=== PATIENT | female | born 1965 | race Caucasian/White ===

== ENCOUNTER 2024-11-13 01:41 | Inpatient (IN) | payer MEDICAID ==
[2024-11-13] VITALS (14 sets, daily range): BP systolic 112–151; BP diastolic 61–87; PULSE 81–110; RESP 16–30; TEMP 97.5–97.7; O2SAT 90–96
[~2024-11-13] VITALS: Ht 177.8 cm; Wt 92.5 kg
[2024-11-13 02:07] LABS: BASOPHILS % (AUTO) 0.6 % (0-1); EOSINOPHILS # (AUTO) 0.1 X10'3 (0-0.9); EOSINOPHILS % (AUTO) 0.8 % (0-6); HEMATOCRIT 35.4 % (35.0-45.0); HEMOGLOBIN 11.8 g/dl (12.0-16.0); LYMPHOCYTES % (AUTO) 13.9 % (21-51); MEAN CORPUSCULAR HEMOGLOBIN 29.8 PG (27.0-31.0); MEAN CORPUSCULAR HGB CONC 33.4 g/dL (33.0-36.5); MEAN CORPUSCULAR VOLUME 89.4 FL (78-98); MONOCYTES # (AUTO) 0.8 X10'3 (0-0.9); MONOCYTES % (AUTO) 10.5 % (2-12); NEUTROPHILS # (AUTO) 5.6 X10'3 (1.8-7.7); NEUTROPHILS % (AUTO) 74.2 % (42-75); PLATELET COUNT 90 X10'3 (140-440); RED BLOOD COUNT 3.97 X10'6 (4.20-5.60); RED CELL DISTRIBUTION WIDTH 15.5 % (11.5-14.5); WHITE BLOOD COUNT 7.5 X10'3 (4.5-11.0)
[2024-11-13 02:29] LABS: ALBUMIN 2.2 G/DL (3.4-5.0); ANION GAP 1 (8-16); BLOOD UREA NITROGEN 5 MG/DL (7-18); BUN/CREATININE RATIO 9.1 (10.0-20.0); CALCIUM 8.2 MG/DL (8.5-10.1); CHLORIDE 105 MMOL/L (99-107); CREATININE 0.55 MG/DL (0.40-0.90); POTASSIUM 3.6 MMOL/L (3.5-5.1); PRO BRAIN NATRIURETIC PEPTIDE 273 PG/ML (0-125); SODIUM 137 MMOL/L (135-145); eCRCL 122 ML/MIN; eGFR > 90 ML/MIN
[2024-11-13 02:34] LABS: GLUCOSE 190 MG/DL (70-104)
[2024-11-13 02:35] LABS: BILIRUBIN,URINE SMALL (Neg); CLARITY,URINE CLOUDY (Clear); COLOR,URINE YELLOW (Yellow); GLUCOSE, URINE 100 mg/dl (Neg); KETONES,URINE NEGATIVE (Neg); LEUKOCYTE ESTERASE ,URINE LARGE (Neg); NITRITES, URINE NEGATIVE (Neg); OCCULT BLOOD,URINE TRACE-INTACT (Neg); PH,URINE 6.5 (4.8-8.0); PROTEIN,URINE TRACE mg/dl (Neg); UROBILINOGEN,URINE >=8.0 E.U/dL (0.2-1.0)
[2024-11-13 02:39] LABS: UA COLLECTION TYPE CLN CATCH MIDSTREAM
[2024-11-13 02:40] LABS: BACTERIA,URINE 4+ /HPF (Neg); RBC,URINE 0-2 /HPF (0-2); SQUAMOUS EPITHELIAL CELL,UR FEW /LPF (FEW); WBC,URINE 20-30 /HPF (0-4)
[2024-11-13] MEDS ORDERED: iohexol 350MG/ML 100ml bottle IV ONE (04:45)
[2024-11-13] MEDS: furosemide 10 MG/1 ML 10ml inj IV ONE (04:45)
[2024-11-13 04:59] LABS: ALANINE AMINOTRANSFERASE 21 U/L (12-78); ALBUMIN/GLOBULIN RATIO 0.4 (1.1-1.5); ALKALINE PHOSPHATASE 80 IU/L (46-116); ASPARTATE AMINO TRANSFERASE 37 U/L (10-37); BILIRUBIN,DIRECT 1.1 MG/DL (0-0.3); BILIRUBIN,TOTAL 2.1 MG/DL (0.1-1.0); TOTAL PROTEIN 7.7 G/DL (6.4-8.2)
[2024-11-13] MEDS ORDERED: ipratropium/albuterol 3ml nebule NEB PRN (05:35)
[2024-11-13] MEDS ORDERED: mag hydrox/Alum hydrox/simeth 30ml oral suspension PO PRN (05:35)
[2024-11-13] MEDS ORDERED: magnesium sulf-water 2g/50mL 50 ML IV PRN (05:35)
[2024-11-13] MEDS ORDERED: acetaminophen 325mg tablet PO PRN (05:35)
[2024-11-13] MEDS ORDERED: potassium Cl 40MEQ/1/2NS 520ml 520 ML IV PRN (05:35)
[2024-11-13] MEDS ORDERED: HEPARIN DRIP-CARDIAC**PHARMACIST-TO-DOSE IV ONE (05:35)
[2024-11-13] MEDS ORDERED: magnesium sulf-water 4G/100mL 100 ML IV PRN (05:35)
[2024-11-13] MEDS ORDERED: magnesium Cl slow-release 64mg tablet PO PRN (05:35)
[2024-11-13] MEDS ORDERED: potassium Cl 20 mEq SR tablet PO PRN (05:35)
[2024-11-13] MEDS ORDERED: morphine 2 MG/ML inj. syringe IV PRN (05:35)
[2024-11-13] MEDS ORDERED: ondansetron/PF 4mg/2ml inj IV PRN (05:35)
[2024-11-13] MEDS ORDERED: magnesium hydroxide 30ml (MOM) UD suspension PO PRN (05:35)
[2024-11-13] MEDS ORDERED: NO HOME MEDS (06:06)
[2024-11-13] MEDS: aspirin 325mg tablet PO ONE (06:11)
[2024-11-13] MEDS: CefTRIAXone/D5W-Rocephin 1gm 50 ML IV SCH (06:11)
[2024-11-13] MEDS: azithromycin/NS 500mg/250ml 250 ML IV SCH (06:13)
[2024-11-13] MEDS ORDERED: regadenoson 0.4mg/5ml syringe IV PRN (07:15)
[2024-11-13] MEDS ORDERED: nitroGLYCERIN 0.4mg SUBLingual tab SL PRN (07:15)
[2024-11-13] MEDS ORDERED: aminophylline 250mg/10ml inj. IV PRN (07:15)
[2024-11-13] MEDS ORDERED: metoprolol tartrate 1mg/ml inj IV PRN (07:15)
[2024-11-13] MEDS: K and/or MAG REPLACEMENT MC SCH (08:00)
[2024-11-13 08:12] LABS: CHOL/HDL RATIO 3.9 (0.00-4.99); CHOLESTEROL 93 MG/DL (0-200); HDL CHOLESTEROL 24 MG/DL (35-60); LDL CHOLESTEROL 62 MG/DL (50-100); MAGNESIUM 1.5 MG/DL (1.5-2.4); POTASSIUM 3.2 MMOL/L (3.5-5.1); THYROID STIMULATING HORMONE 1.02 ulU/ml (0.34-4.50); TRIGLYCERIDES 59 MG/DL (20-135)
[2024-11-13] MEDS ORDERED: aminophylline 500mg/20ml vial IV PRN (09:40)
[2024-11-13] MEDS: docusate sod 100mg capsule PO SCH (11:51)
[2024-11-13] MEDS: predniSONE 20 mg tablet PO SCH (11:51)
[2024-11-13] MEDS: enoxaparin 100mg/ml syringe SUBCUT SCH (11:51)
[2024-11-13 13:28] LABS: BASOPHILS % (AUTO) 0.3 % (0-1); EOSINOPHILS % (AUTO) 0.7 % (0-6); HEMATOCRIT 34.1 % (35.0-45.0); HEMOGLOBIN 11.6 g/dl (12.0-16.0); LYMPHOCYTES # (AUTO) 0.8 X10'3 (1.1-4.8); LYMPHOCYTES % (AUTO) 14.6 % (21-51); MEAN CORPUSCULAR HEMOGLOBIN 30.3 PG (27.0-31.0); MEAN CORPUSCULAR HGB CONC 33.9 g/dL (33.0-36.5); MEAN CORPUSCULAR VOLUME 89.4 FL (78-98); MEAN PLATELET VOLUME 8.3 FL (7.4-10.4); MONOCYTES # (AUTO) 0.7 X10'3 (0-0.9); MONOCYTES % (AUTO) 12.3 % (2-12); NEUTROPHILS # (AUTO) 4.2 X10'3 (1.8-7.7); NEUTROPHILS % (AUTO) 72.1 % (42-75); PLATELET COUNT 83 X10'3 (140-440); RED BLOOD COUNT 3.81 X10'6 (4.20-5.60); RED CELL DISTRIBUTION WIDTH 15.5 % (11.5-14.5); WHITE BLOOD COUNT 5.8 X10'3 (4.5-11.0)
[2024-11-13 13:32] LABS: ALBUMIN 2.1 G/DL (3.4-5.0); ANION GAP 3 (8-16); BLOOD UREA NITROGEN 5 MG/DL (7-18); BUN/CREATININE RATIO 9.6 (10.0-20.0); CALCIUM 8.5 MG/DL (8.5-10.1); CHLORIDE 104 MMOL/L (99-107); CREATININE 0.52 MG/DL (0.40-0.90); MAGNESIUM 1.6 MG/DL (1.5-2.4); PHOSPHORUS 3.2 MG/DL (2.3-4.5); POTASSIUM 3.3 MMOL/L (3.5-5.1); SODIUM 138 MMOL/L (135-145); TOTAL CARBON DIOXIDE 30.8 MMOL/L (24-32); eCRCL 129 ML/MIN; eGFR > 90 ML/MIN
[2024-11-13 13:33] LABS: GLUCOSE 170 MG/DL (70-104)
[2024-11-13] MEDS: potassium Cl 20 mEq SR tablet PO PRN (13:38)
[2024-11-14] VITALS (14 sets, daily range): BP systolic 98–121; BP diastolic 40–61; PULSE 81–93; RESP 9–21; TEMP 97.3–97.7; O2SAT 91–96
[2024-11-14] MEDS: nicotine 14mg patch - 24hr TD SCH (00:30)
[2024-11-14 07:42] LABS: BASOPHILS % (AUTO) 0.4 % (0-1); EOSINOPHILS % (AUTO) 0.6 % (0-6); HEMATOCRIT 33.7 % (35.0-45.0); HEMOGLOBIN 11.4 g/dl (12.0-16.0); LYMPHOCYTES # (AUTO) 1.1 X10'3 (1.1-4.8); LYMPHOCYTES % (AUTO) 15.5 % (21-51); MEAN CORPUSCULAR HGB CONC 33.9 g/dL (33.0-36.5); MEAN CORPUSCULAR VOLUME 88.6 FL (78-98); MEAN PLATELET VOLUME 8.4 FL (7.4-10.4); MONOCYTES # (AUTO) 0.8 X10'3 (0-0.9); MONOCYTES % (AUTO) 11.2 % (2-12); NEUTROPHILS # (AUTO) 5.2 X10'3 (1.8-7.7); NEUTROPHILS % (AUTO) 72.3 % (42-75); PLATELET COUNT 90 X10'3 (140-440); RED CELL DISTRIBUTION WIDTH 15.4 % (11.5-14.5); WHITE BLOOD COUNT 7.2 X10'3 (4.5-11.0)
[2024-11-14 08:19] LABS: ALANINE AMINOTRANSFERASE 17 U/L (12-78); ALBUMIN 1.9 G/DL (3.4-5.0); ALBUMIN/GLOBULIN RATIO 0.4 (1.1-1.5); ALKALINE PHOSPHATASE 70 IU/L (46-116); ANION GAP 2 (8-16); ASPARTATE AMINO TRANSFERASE 35 U/L (10-37); BILIRUBIN,TOTAL 1.5 MG/DL (0.1-1.0); BLOOD UREA NITROGEN 13 MG/DL (7-18); CALCIUM 8.8 MG/DL (8.5-10.1); CHLORIDE 104 MMOL/L (99-107); CREATININE 0.59 MG/DL (0.40-0.90); MAGNESIUM 1.8 MG/DL (1.5-2.4); POTASSIUM 3.8 MMOL/L (3.5-5.1); SODIUM 137 MMOL/L (135-145); TOTAL CARBON DIOXIDE 30.8 MMOL/L (24-32); TOTAL PROTEIN 7.2 G/DL (6.4-8.2); eCRCL 114 ML/MIN; eGFR > 90 ML/MIN
[2024-11-14 08:21] LABS: GLUCOSE 169 MG/DL (70-104)
[2024-11-14] MEDS: ipratropium/albuterol 3ml nebule NEB SCH (10:10)
[2024-11-14 10:53] LABS: URINE AMPHETAMINE SCREEN POSITIVE (Neg); URINE BARBITUATE SCREEN NEGATIVE (Neg); URINE BENZODIAZEPINES SCREEN NEGATIVE (Neg); URINE CANNABINOID SCREEN NEGATIVE (Neg); URINE COCAINE SCREEN NEGATIVE (Neg); URINE METHADONE SCREEN NEGATIVE (Neg); URINE OPIATE SCREEN NEGATIVE (Neg); URINE PHENCYCLIDINE SCREEN NEGATIVE (Neg)
[2024-11-14] MEDS: albuterol 2.5 MG/3 ML nebule NEB PRN (15:33)
[2024-11-14] MEDS ORDERED: aspirin 325mg tablet ONE (18:47)
[2024-11-14] MEDS ORDERED: ticagrelor 90mg tablet ONE (18:47)
[2024-11-14] MEDS ORDERED: iohexol 350MG/ML 100ml bottle IV ONE (18:48)
[2024-11-14] MEDS ORDERED: guaiFENesin 200 MG/10 ML oral syrup UD cup PO PRN (19:20)
[2024-11-14] MEDS: furosemide 20 MG/2 ML vial IV SCH (20:00)
[2024-11-14] MEDS: metoprolol succinate 25mg (24-HOUR) SR. Tablet PO SCH (20:46)
[2024-11-15] VITALS (7 sets, daily range): BP systolic 105–111; BP diastolic 55–69; PULSE 70–93; RESP 11–20; TEMP 97.1–98.3; O2SAT 94–96
[2024-11-15 07:19] LABS: BASOPHILS % (AUTO) 0.4 % (0-1); EOSINOPHILS % (AUTO) 0.7 % (0-6); HEMOGLOBIN 10.8 g/dl (12.0-16.0); LYMPHOCYTES # (AUTO) 1.1 X10'3 (1.1-4.8); LYMPHOCYTES % (AUTO) 18.7 % (21-51); MEAN CORPUSCULAR HEMOGLOBIN 29.9 PG (27.0-31.0); MEAN CORPUSCULAR HGB CONC 33.6 g/dL (33.0-36.5); MEAN CORPUSCULAR VOLUME 88.8 FL (78-98); MEAN PLATELET VOLUME 8.6 FL (7.4-10.4); MONOCYTES # (AUTO) 0.6 X10'3 (0-0.9); MONOCYTES % (AUTO) 9.2 % (2-12); NEUTROPHILS # (AUTO) 4.2 X10'3 (1.8-7.7); PLATELET COUNT 90 X10'3 (140-440); RED BLOOD COUNT 3.61 X10'6 (4.20-5.60)
[2024-11-15 07:49] LABS: ALANINE AMINOTRANSFERASE 17 U/L (12-78); ALBUMIN 1.8 G/DL (3.4-5.0); ALBUMIN/GLOBULIN RATIO 0.4 (1.1-1.5); ALKALINE PHOSPHATASE 69 IU/L (46-116); ANION GAP 5 (8-16); ASPARTATE AMINO TRANSFERASE 42 U/L (10-37); BILIRUBIN,TOTAL 0.9 MG/DL (0.1-1.0); BLOOD UREA NITROGEN 12 MG/DL (7-18); BUN/CREATININE RATIO 21.4 (10.0-20.0); CALCIUM 8.7 MG/DL (8.5-10.1); CHLORIDE 103 MMOL/L (99-107); CREATININE 0.56 MG/DL (0.40-0.90); MAGNESIUM 1.8 MG/DL (1.5-2.4); POTASSIUM 3.6 MMOL/L (3.5-5.1); SODIUM 135 MMOL/L (135-145); TOTAL CARBON DIOXIDE 27.3 MMOL/L (24-32); TOTAL PROTEIN 6.9 G/DL (6.4-8.2); eCRCL 120 ML/MIN; eGFR > 90 ML/MIN
[2024-11-15 08:04] LABS: GLUCOSE 216 MG/DL (70-104)
[2024-11-15] MEDS: lisinopril 5mg tablet PO SCH (08:20)
[2024-11-15] MEDS ORDERED: DEXTROSE 15 GM of carb/4 tabs (each vial/BOTTLE has 4 tablets) PO PRN ×2 (10:05)
[2024-11-15] MEDS ORDERED: glucagon, human recombinant 1mg kit SUBCUT PRN (10:05)
[2024-11-15] MEDS ORDERED: dextrose 50%-water 50ml dispensing syringe IV PRN ×2 (10:05)
[2024-11-15] MEDS: INSULIN LISPRO 100 UNIT/ML INSULN.PEN MULTI-DOSE SQ SCH (12:00)
[2024-11-15] MEDS: spironolactone 25 MG tablet PO SCH (12:08)
[2024-11-15] MEDS: levoFLOXACIN 750MG TABLET PO SCH (12:08)
[2024-11-15] MEDS: EMPAGLIFLOZIN 10 MG TABLET PO SCH (12:08)
[2024-11-15 12:11] LABS: CREATININE 0.63 MG/DL (0.40-0.90); POTASSIUM 3.8 MMOL/L (3.5-5.1); eCRCL 107 ML/MIN; eGFR > 90 ML/MIN
[2024-11-15] MEDS ORDERED: FURO10VI51 PO (12:11)
[2024-11-15] MEDS ORDERED: METO-395 PO (12:11)
[2024-11-15] MEDS ORDERED: GUAI100L97 PO (12:11)
[2024-11-15] MEDS ORDERED: EMPA10TA PO (12:11)
[2024-11-15] MEDS ORDERED: LEVO750T68 PO (12:11)
[2024-11-15] MEDS ORDERED: APIX5TAB3 PO (12:11)
[2024-11-15] MEDS ORDERED: METF-900 PO (12:11)
[2024-11-15] MEDS ORDERED: LISI5TAB22 PO (12:11)
[2024-11-15] MEDS ORDERED: ASPI-1265 PO (12:12)
[2024-11-15] MEDS ORDERED: ATOR20TA66 PO (12:12)
[2024-11-15] MEDS ORDERED: BUDE10.27 PO (12:12)
[2024-11-15] MEDS ORDERED: PRED10TA23 PO (12:21)
[2024-11-15] MEDS ORDERED: ATRIN IH (12:21)
[2024-11-15] MEDS ORDERED: INHA1EAC9 INH (12:23)
[2024-11-15] MEDS ORDERED: apixaban 5mg tablet PO SCH (20:00)
[2024-11-15] MEDS ORDERED: insulin glargine (Lantus) pen - multi-dose SQ SCH (21:00)
== END 2024-11-15 16:10 | disposition home or self-care (01) | DRG 133 ==
LOC: ER 01:43 → ED HOLD 05:34 → EDBEDREQ 08:28 → PCU 3S 11:30
PROVIDERS: ADMIT Internal Medicine Critical Care Medicine; ATTEND Family Medicine
PROC: B32T1ZZ Computerized Tomography (CT Scan) of Left Pulmonary Artery using Low Osmolar Contrast (ICD-10-PCS; principal; 2024-11-13)
PROC: B3201ZZ Computerized Tomography (CT Scan) of Thoracic Aorta using Low Osmolar Contrast (ICD-10-PCS; 2024-11-13)
PROC: B32S1ZZ Computerized Tomography (CT Scan) of Right Pulmonary Artery using Low Osmolar Contrast (ICD-10-PCS; 2024-11-13)
PROC: 4A02XM4 Measurement of Cardiac Total Activity, External Approach (ICD-10-PCS; 2024-11-13)
PROC: 3E033HZ Introduction of Radioactive Substance into Peripheral Vein, Percutaneous Approach (ICD-10-PCS; 2024-11-13)
DX: J96.01 Acute respiratory failure with hypoxia (principal); J15.20 Pneumonia due to staphylococcus, unspecified; I42.9 Cardiomyopathy, unspecified; I50.32 Chronic diastolic (congestive) heart failure; Z20.822 Contact with and (suspected) exposure to COVID-19; N30.00 Acute cystitis without hematuria; Z82.49 Family history of ischemic heart disease and other diseases of the circulatory system; Z82.3 Family history of stroke; I37.1 Nonrheumatic pulmonary valve insufficiency; I07.1 Rheumatic tricuspid insufficiency; B96.20 Unspecified Escherichia coli [E. coli] as the cause of diseases classified elsewhere; F15.90 Other stimulant use, unspecified, uncomplicated; T43.655A Adverse effect of methamphetamines, initial encounter; Y92.89 Other specified places as the place of occurrence of the external cause
CPT/HCPCS: 36415; 71045; 71275; 78452; 80048; 80053; 80061; 80076; 80305; 81001; 82565; 82948; 83036; 83605; 83735; 83880; 84100; 84132; 84145; 84443; 84484; 85025; 85651; 86140; 87040; 87077; 87088; 87186; 87502; 87503; 87811; 93005; 93017; 93306; 94640; 94664; 94668; 94760; 99291; A4615; A6213; A6258; A9500; G0378; J0456; J0696; J1650; J1815; J1940; J7030; J7512; Q9967